=== PATIENT | male | born 1970 | race Caucasian/White ===

== ENCOUNTER → 2020-03-11 11:56 | Outpatient (BNVA) | payer OTHER, SELFPAY | PROVIDERS: PCP Family Medicine; Visit Provider Surgery | DX: Z20.822 Contact with and (suspected) exposure to COVID-19 (principal) | CPT/HCPCS: 87635 ==

== ENCOUNTER 2020-03-17 06:07 | Day surgery (SDC) | payer OTHER, SELFPAY ==
[2020-03-14 13:12] VITALS: BMI 25.7
[2020-03-17 06:22] VITALS: BP 116/71; PULSE 77; RESP 18; TEMP 36.3; O2SAT 98
--- NOTE | 2020-03-17 06:36 | W.PM.OPSUD ---
Surgery/Procedure H&P Update DATE OF PROCEDURE: March 17, 2020 DATE H&P PERFORMED: 03/01/20 H&P UPDATE INFORMATION: No changes to prior documentation PLANNED PROCEDURE: Operation Date: 03/17/20 07:00 Proposed Procedures p Colonoscopy 11026 Z12.11(Not Applicable) - Bhupinder Prado MD
[2020-03-17] MEDS: sodium chloride 0.9% 1,000 ML 30 ML IV (06:40)
--- NOTE | 2020-03-17 06:40 | ANES.PREANE2 ---
Pre-Anesthetic Assessment Pre-Anesthetic Assessment: Height/Weight: Height 1.83 m Weight 86.183 kg Temp Pulse Resp BP Pulse Ox 97.3 F L 77 18 116/71 98 03/17/20 06:22 03/17/20 06:22 03/17/20 06:22 03/17/20 06:22 03/17/20 06:22 Preop Diagnosis: screening Proposed Procedure: Operation Date: 03/17/20 07:00 Proposed Procedures p Colonoscopy 69042 Z12.11(Not Applicable) - Bhupinder Prado MD Familial anesthetic complications: None Was Beta Amira taken within 24 hours: N/A Last intake: Intake Last Liquid Date 03/16/20 Last Liquid Time 22:00 Last Solid Date 03/16/20 Last Solid Time 08:00 Social: Social History: No alcohol and No tobacco Exam: Pre-Anes Outpt Exam: alert, oriented x 3, clear to auscultation bilaterally and regular rate & rhythm Airway: Cervical ROM: WNL MP: 4 Dentition: Full Anesthetic Plan: ASA status: 1 Anesthesia: MAC Risk of > 500 ml blood loss (7ml/kg in children): No Meds/Allergies Current Medications: Current Medications Generic Name Dose Route Start Last Admin Trade Name Freq PRN Reason Stop Dose Admin Sodium Chloride 1,000 mls @ 30 ml s/hr 03/17/20 06:15 03/17/20 06:40 Sodium Chloride 0.9% IV 03/18/20 06:14 30 mls/hr .Q24H SEAN Administration Data Anesthesia Cardiac Studies: No Data to Display
[2020-03-17 07:27] VITALS: BP 133/65; PULSE 79; RESP 16; TEMP 36.2; O2SAT 99
[2020-03-17 07:38] VITALS: BP 118/78; PULSE 87; RESP 18; O2SAT 97
--- NOTE | 2020-03-17 07:39 | ANE.PACU2 ---
Inpatient post-anesthesia follow up: Airway intact: Yes Vital signs: Temperature 97.1 F Pulse Rate 87 Respiratory Rate 18 Blood Pressure 118/78 Pulse Oximetry 97 Oxygen Delivery Me thod Room Air Oxygen Flow Rate 2 Fraction of Inspir ed Oxygen Hydration adequate: Yes Nausea and vomiting: No Mental status: Baseline
== END 2020-03-17 08:22 | disposition home or self-care (01) ==
PROVIDERS: PCP Family Medicine; Visit Provider Surgery
PROC: 0DJD8ZZ Inspection of Lower Intestinal Tract, Via Natural or Artificial Opening Endoscopic (ICD-10-PCS; CPT 45378; principal; 2020-03-17 07:00)
DX: Z12.11 Encounter for screening for malignant neoplasm of colon (principal); K64.8 Other hemorrhoids
CPT/HCPCS: 12345; 45378; J2704; J7030

== ENCOUNTER 2020-10-10 20:00 | Outpatient (CLI) | payer OTHER, SELFPAY | END 2020-10-10 20:01 | disposition home or self-care (01) | LOC: SLEEP 10-11 10:03 | PROVIDERS: PCP Nurse Practitioner Family; Visit Provider Nurse Practitioner Family | DX: G47.10 Hypersomnia, unspecified (principal); R06.83 Snoring; R53.83 Other fatigue | CPT/HCPCS: 95810 ==

== ENCOUNTER 2021-06-05 02:59 | Emergency (ER) | payer OTHER, SELFPAY ==
[2021-06-05 03:08] VITALS: BP 148/84; PULSE 97; RESP 20; TEMP 36.8; O2SAT 96
--- NOTE | 2021-06-05 03:09 | ECG_ITS ---
[facility] Test Date: 2021-06-05 Pat Name: Nicholas Hill Department: Room: Gender: Male Thread Laster: : 1970 Requested By: Bryan Villalobos Order Number: [id number] Saige MD: Mariano Triana M.D. Measurements Intervals [place] Rate: 97 P: 54 TN: 166 QRS: 7 QRSD: 90 T: 64 QT: 337 QTc: 429 Interpretive Statements SINUS RHYTHM NONSPECIFIC T-WAVE ABNORMALITY No previous ECG available for comparison Electronically Signed On 06-05-2021 22:07:43 CDT by Mariano Triana M.D. [email or web address] in the [email or web address]/[id number]
--- NOTE | 2021-06-05 03:09 | XRR_ITS ---
PROCEDURE INFORMATION: Exam: XR Chest Exam date and time: 06/05/2021 3:11 AM Age: 50 years old Clinical indication: Pain; Dyspnea; Patient HX: Chest pressure and left arm numbness and tingling; Additional info: Cp TECHNIQUE: Imaging protocol: XR of the chest. Views: 1 view. COMPARISON: No relevant prior studies available. FINDINGS: Lungs: Unremarkable. No consolidation. Pleural spaces: Unremarkable. No pleural effusion. No pneumothorax. Heart/Mediastinum: Unremarkable. No cardiomegaly. Bones/joints: Unremarkable. XR/XR chest 1V portable [id number] IMPRESSION: No acute findings.
[2021-06-05 03:10] VITALS: BMI 32.3
[2021-06-05 03:17] VITALS: BP 131/83; PULSE 97; RESP 18; O2SAT 95
[2021-06-05 03:20] LABS: Basophils % 0.4 %; Eosinophils # 0.1 10^3/uL (0.0-0.8); Eosinophils % 0.7 %; Hematocrit 48.3 % (42.0-52.0); Hemoglobin 16.6 g/dL (11.7-16.6); Lymphocytes # 0.4 10^3/uL (0.8-4.8); Lymphocytes % 3.7 %; Mean Corpuscular HGB Conc 34.4 g/dL (30.0-36.0); Mean Corpuscular Hemoglobin 31.1 pg (28.0-34.0); Mean Corpuscular Volume 90.6 fl (80-94); Mean Platelet Volume 9.6 fL (7.4-10.4); Monocytes # 0.4 10^3/uL (0.2-0.9); Neutrophils # 8.62 10^3/uL (1.8-7.7); Nucleated Red Blood Cells % 0 %; Platelet Count 213 10^3/cmm (130-400); Red Blood Count 5.33 10^6/uL (4.1-5.3); Red Cell Distribution Width 12.4 % (12.1-15.1); White Blood Count 9.5 10^3/uL (4.0-10.0)
[2021-06-05 03:33] LABS: Troponin(5th) Baseline 6 ng/L (0-15)
[2021-06-05 03:40] LABS: Alanine Aminotransferase 32 U/L (0-41); Albumin Level 4.6 g/dL (3.5-5.2); Alkaline Phosphatase 125 IU/L (40-130); Anion Gap 15.8 (5-19); Aspartate Amino Transferase 28 U/L (0-40); Blood Urea Nitrogen 18 mg/dL (6-20); Calcium 8.4 mg/dL (8.5-10.5); Carbon Dioxide 25 mmol/L (22-29); Chloride 101 mmol/L (98-107); Globulin 2.7 g/dL (1.3-4.6); Glomerular Filtration Rate 101.5 mL/min (90-130); Glucose 117 mg/dL (65-115); NT Pro B Type Natriuretic Pept 22 pg/mL (0-125); Osmolality Calculated 289 mOsm/kg (285-295); Potassium 3.8 mmol/L (3.5-5.1); Sodium 138 mmol/L (136-145); Total Bilirubin 0.7 mg/dL (0.15-1.2); Total Protein 7.3 g/dL (6.6-8.7)
[2021-06-05 03:57] LABS: INR 1.03 (0.8-1.2); Partial Thromboplastin Time 27.6 SECONDS (23.9-36.7)
--- NOTE | 2021-06-05 04:56 | ED_ITS ---
HPI - Chest Pain General: Chief Complaint: Chest Pain Stated Complaint: chest Pain Time Seen by Provider: 06/05/21 03:09 Source: patient and family History of Present Illness: Healthy 50-year-old male who presents after awakening this morning with chest discomfort. He notes pain was in the lower part of his chest, radiated into his left arm. He became nauseated and vomited once. He was mildly short of breath. He notes that he felt improved after vomi ting. He is pain-free now. He had taken some Tums prior to vomiting. He denies long car trips or immobilization, fever, cough, or other symptoms. He has had heartburn before, but notes that it has never awoken him from sleep, and that this is a different type of pain. MD complaint: chest pain Pertinent past history: other Onset (ago): hour(s) Timing of current episode: constant and now resolved Prior episodes: No Onset: awoke with symptoms Pain location: substernal and epigastric Pain radiation: left arm Severity: moderate Quality: aching Relieving factors: other (Vomiting) Exacerbating factors: nothing Associated symptoms: Reports dyspnea, nausea and vomiting; Deny abdominal pain, diaphoresis, fever(s), leg edema or syncope Treatment prior to arrival: other Review of Systems Const: Denies: fever(s) or diaphoresis Card: Denies: chest pain or syncope Resp: Reports: dyspnea GI: Reports: nausea and vomiting; Denies: abdominal pain Physical Exam Const: GENERAL APPEARANCE: cooperative; not frail appearing HENMT: COMMON NORMALS: normocephalic and Normal external nose present HEAD & SCALP: normocephalic NOSE: Normal external nose present Eye: COMMON NORMALS: Equal, round and reactive pupils present and EOMs intact bilaterally PUPIL: Yes Equal, round and reactive pupils present Chest: COMMONS NORMALS: normal inspection of the chest CHEST: No tenderness Resp: COMMON NORMALS: normal respiratory effort, No use of accessory muscles and clear to auscultation bilaterally AUSCULTATION: clear to auscultation bilaterally Cardio: COMMON NORMALS: regular rate and regular rhythm RATE: regular rate RHYTHM: regular rhythm GI: COMMON NORMALS: Normal to inspection, nondistended, normoactive bowel sounds present, Soft to palpation and non-tender PALPATION: Yes Soft to palpation Neuro: COLIN COMA SCALE: document GCS findings [place] coma scale eye opening: Spontaneous Colin coma scale verbal response: Orientated [place] coma scale motor response: Obey commands [place] coma scale total score: 15 Psych: COMMON NORMALS: cooperative Course Vital Signs: Vital signs: Vital Signs Temperature 98.2 F 06/05/21 03:08 Pulse Rate 97 06/05/21 03:17 Respiratory Rate 18 06/05/21 03:17 Blood Pressure 131/83 06/05/21 03:17 Pulse Oximetry 95 06/05/21 03:17 MDM - Chest Pain Medical Decision Making 50-year-old gentleman with resolved chest pain. CBC is normal. BMP is normal. Liver enzymes are normal. Chest x-ray is normal as well. EKG shows a normal sinus rhythm with a rate of 90, normal axis, no acute ST changes. Intervals are normal. Troponin is 6. Second troponin is pending. If delta is normal, will allow discharge with outpatient stress test follow-up. Lab Data : 06/05/21 03:05 06/05/21 03:05 Radiology Impressions Chest X-Ray 06/05/21 03:09 IMPRESSION: No acute findings. Laboratory Results WBC 9.5 10^3/uL (4.0-10.0) 06/05/21 03:05 RBC 5.33 10^6/uL (4.1-5.3) H 06/05/21 03:05 Hgb 16.6 g/dL (11.7-16.6) 06/05/21 03:05 Hct 48.3 % (42.0-52.0) 06/05/21 03:05 MCV 90.6 fl (80-94) 06/05/21 03:05 MCH 31.1 pg (28.0-34.0) 06/05/21 03:05 MCHC 34.4 g/dL (30.0-36.0) 06/05/21 03:05 RDW 12.4 % (12.1-15.1) 06/05/21 03:05 Plt Count 213 10^3/cmm (130-400) 06/05/21 03:05 MPV 9.6 fL (7.4-10.4) 06/05/21 03:05 Neut % (Auto) 91.0 % 06/05/21 03:05 Lymph % (Auto) 3.7 % 06/05/21 03:05 [place] % (Auto) 4.0 % 06/05/21 03:05 Eos % (Auto) 0.7 % 06/05/21 03:05 Baso % (Auto) 0.4 % 06/05/21 03:05 Neut # (Auto) 8.62 10^3/uL (1.8-7.7) H 06/05/21 03:05 Lymph # (Auto) 0.4 10^3/uL (0.8-4.8) L 06/05/21 03:05 [place] # (Auto) 0.4 10^3/uL (0.2-0.9) 06/05/21 03:05 Eos # (Auto) 0.1 10^3/uL (0.0-0.8) 06/05/21 03:05 Baso # (Auto) 0.0 10^3/uL (0.0-0.1) 06/05/21 03:05 Nucleated RBC % (auto) 0 % 06/05/21 03:05 Nucleated RBCs # 0.0 /100WBC 06/05/21 03:05 PT 13.80 SECONDS (12.1-14.9) 06/05/21 03:40 INR 1.03 (0.8-1.2) 06/05/21 03:40 APTT 27.6 SECONDS (23.9-36.7) 06/05/21 03:40 Sodium 138 mmol/L (136-145) 06/05/21 03:05 Potassium 3.8 mmol/L (3.5-5.1) 06/05/21 03:05 Chloride 101 mmol/L (98-107) 06/05/21 03:05 Carbon Dioxide 25 mmol/L (22-29) 06/05/21 03:05 Anion Gap 15.8 (5-19) 06/05/21 03:05 BUN 18 mg/dL (6-20) 06/05/21 03:05 Creatinine 0.8 mg/dL (0.7-1.2) 06/05/21 03:05 GFR Calculation 101.5 mL/min (90-130) 06/05/21 03:05 Glucose 117 mg/dL (65-115) H 06/05/21 03:05 Calculated Osmolality 289 mOsm/kg (285-295) 06/05/21 03:05 Calcium 8.4 mg/dL (8.5-10.5) L 06/05/21 03:05 Total Bilirubin 0.7 mg/dL (0.15-1.2) 06/05/21 03:05 AST 28 U/L (0-40) 06/05/21 03:05 ALT 32 U/L (0-41) 06/05/21 03:05 Alkaline Phosphatase 125 IU/L (40-130) 06/05/21 03:05 Troponin T Baseline 6 ng/L (0-15) 06/05/21 03:05 Troponin T 120 Minute 6.00 ng/L (0-15) 06/05/21 04:31 NT-Pro-B Natriuret Pep 22 pg/mL (0-125) 06/05/21 03:05 Total Protein 7.3 g/dL (6.6-8.7) 06/05/21 03:05 Albumin 4.6 g/dL (3.5-5.2) 06/05/21 03:05 Globulin 2.7 g/dL (1.3-4.6) 06/05/21 03:05 Discharge Plan Discharge Patient Disposition: Home Clinical Impression: Chest pain Condition: Stable Prescriptions: No Action multivitamin Tablet 1 tab PO DAILY 0RF Discharge Orders: Discharge ED (Routine); Ordered 06/05/21 Ordered By: Bryan Cabello Referrals: Dimple Shankar FNP [Primary Care Provider] - 1-3 days Discharge Diet: Advance as tolerated Discharge Activity: Increase activity as tolerated Patient Instructions: Chest Pain (ED) Activity Restrictions/Additional Instructions: Case management will set you up for an outpatient stress test. You should get a call in the next couple of days regarding scheduling. If you do not, Edvin [phone] during normal business hours and ask for the bilingual patient support caseworker. Return to the ER for return of chest pain, shortness of breath, fever, cough, any other concerning symptoms. Coding Level of Care Code ED Culinary Worker for Abelardo Fwpreethi Exam Comprehensive
--- NOTE | 2021-06-05 05:09 | ECG_ITS ---
[facility] Test Date: 2021-06-05 Pat Name: Nicholas Hill Department: Room: Gender: Male Instructional Aide: : 1970 Requested By: Bryan Villalobos Order Number: [id number] Saige MD: Mariano Triana M.D. Measurements Intervals [place] Rate: 94 P: 61 MS: 169 QRS: 18 QRSD: 92 T: 70 QT: 333 QTc: 418 Interpretive Statements SINUS RHYTHM Compared to ECG 06/05/2021 03:07:51 T-wave abnormality no longer present Electronically Signed On 06-05-2021 22:14:29 CDT by Mariano Triana M.D. [email or web address] [email or web address] Phone/store/OM/[id number]
[2021-06-05 05:26] VITALS: BP 133/81; O2SAT 97
--- NOTE | 2021-06-05 14:57 | DCPLANNER ---
Addendum entered by Alma Delia Grace 07/07/21 19:15: Patients had an outpatient stress test scheduled for 07.04.21 - patient did attend appointment. Addendum entered by Alma Delia Grace 06/15/21 22:12: Patient has a stress test scheduled for Sunday, July 04, 2021 at 1:00. Centralized scheduling will call patient with appointment information. Original Note: manager of security had message to schedule an outpatient stress test for patient. manager of security spoke with patients , she stated that patient wanted to have the stress test, and that he sees Dimple Shaknar for his primary care physician. manager of security faxed signed order for stress test to centralized scheduling, who will call patient with appointment information.
== END 2021-06-05 05:30 | disposition home or self-care (01) ==
PROVIDERS: Emergency Provider Emergency Medicine; PCP Nurse Practitioner Family
DX: R07.9 Chest pain, unspecified (principal)
CPT/HCPCS: 71045; 80053; 83880; 84484; 85025; 85610; 85730; 93005; 99283

== ENCOUNTER 2021-06-05 17:08 | Emergency (ER) | payer OTHER, SELFPAY ==
[2021-06-05 17:43] VITALS: BP 122/73; PULSE 82; RESP 16; TEMP 36.7; O2SAT 95; BMI 28.5
--- NOTE | 2021-06-05 18:53 | ECG_ITS ---
[facility] Test Date: 2021-06-05 Pat Name: Nicholas Hill Department: Room: Gender: Male Director Content Marketing: : 1970 Requested By: Raciel Bunn Order Number: [id number] Saige MD: Mariano Triana M.D. Measurements Intervals [place] Rate: 82 P: 67 [place]: 182 QRS: 24 QRSD: 100 T: 71 QT: 361 QTc: 422 Interpretive Statements SINUS RHYTHM INCOMPLETE RIGHT BUNDLE BRANCH BLOCK [90+ ms QRS DURATION, TERMINAL R IN V1/V2, 40+ ms S IN I/aVL/V4/V5/V6] NONSPECIFIC T-WAVE ABNORMALITY Compared to ECG 06/05/2021 04:40:11 Incomplete right bundle-branch block now present T-wave abnormality now present Electronically Signed On 06-05-2021 21:49:27 CDT by Mariano Triana M.D. [email or web address] Therapeuticsreg[facility] hospital [facility].[employer]/store/OM/[id number]
--- NOTE | 2021-06-05 19:22 | W.ED.GENADLT ---
HPI - General Adult General: Chief complaint: General Medical Stated complaint: sent to ER per Dr. Cabello Time Seen by Provider: 06/05/21 18:55 Source: patient Mode of arrival: ambulatory Limitations: no limitations History of Present Illness: 50-year-old male who was seen here last night for some chest pain lab work was normal he states that throughout the day he has had some pain in his back he has been feeling fatigued and having muscle aches. He denies any worsening improving factors states he just had felt worse today. Concern of possible blood clot he denies any chest pain currently is more back pain today. [facility], [facility] PFSH: Medical History (Updated 06/05/21 @ 22:44 by Raciel Bunn MD) No pertinent past medical history Social History (Updated 06/05/21 @ 19:23 by Raciel Bunn MD) Substance/Drug Use: never Physical Exam Const: COMMON NORMALS: no acute distress, patient oriented x3 and healthy appearing HENMT: COMMON NORMALS: normocephalic and atraumatic HEAD & SCALP: normocephalic and atraumatic Eye: COMMON NORMALS: Equal, round and reactive pupils present and EOMs intact bilaterally PUPIL: Yes Equal, round and reactive pupils present Neck/C-Spine: COMMON NORMALS: full ROM and supple Chest: COMMONS NORMALS: normal inspection of the chest and normal palpation of entire chest wall Resp: COMMON NORMALS: normal respiratory effort, No retractions, No use of accessory muscles and clear to auscultation bilaterally AUSCULTATION: clear to auscultation bilaterally Cardio: COMMON NORMALS: regular rate, regular rhythm and No murmurs present (Cardio) RATE: regular rate RHYTHM: regular rhythm GI: COMMON NORMALS: Normal to inspection, nondistended, normoactive bowel sounds present, Soft to palpation, non-tender and no masses PALPATION: Yes Soft to palpation Extremity: COMMON NORMALS: normal to inspection and full ROM Neuro: COMMON NORMALS: patient oriented x3, moves all extremities and no focal motor deficits Psych: COMMON NORMALS: mental status grossly normal, Normal thought process present and cooperative THOUGHT PROCESS: Normal thought process present Skin: COMMON NORMALS: no rashes or lesions noted and no wounds GENERAL SKIN EXAM: no rashes or lesions noted Course Vital Signs: Vital signs: Vital Signs Temperature 98.0 F 06/05/21 17:43 Pulse Rate 86 04/25/22 22:38 Respiratory Rate 18 06/05/21 22:38 Blood Pressure 124/87 06/05/21 22:38 Pulse Oximetry 99 06/05/21 22:38 MDM - General Adult Medical Decision Making Patient presents here with malaise fatigue some back pain chest pain likely has a viral illness patient's blood work including CT angio is all normal he is stable for discharge to follow-up PCP and return if worsening. Lab Data : 06/05/21 19:51 06/05/21 19:51 Radiology Impressions Chest CTA 06/05/21 20:31 IMPRESSION: Negative for pulmonary embolus or airspace infiltrate. Laboratory Results WBC 5.4 10^3/uL (4.0-10.0) 06/05/21 19:51 RBC 4.96 10^6/uL (4.1-5.3) 06/05/21 19:51 Hgb 15.4 g/dL (11.7-16.6) 06/05/21 19:51 Hct 45.7 % (42.0-52.0) 06/05/21 19:51 MCV 92.1 fl (80-94) 06/05/21 19:51 MCH 31.0 pg (28.0-34.0) 06/05/21 19:51 MCHC 33.7 g/dL (30.0-36.0) 06/05/21 19:51 RDW 12.7 % (12.1-15.1) 06/05/21 19:51 Plt Count 177 10^3/cmm (130-400) 06/05/21 19:51 MPV 9.6 fL (7.4-10.4) 06/05/21 19:51 Neut % (Auto) 81.6 % 06/05/21 19:51 Lymph % (Auto) 10.1 % 06/05/21 19:51 [place] % (Auto) 6.9 % 06/05/21 19:51 Eos % (Auto) 0.4 % 06/05/21 19:51 Baso % (Auto) 0.4 % 06/05/21 19:51 Neut # (Auto) 4.39 10^3/uL (1.8-7.7) 06/05/21 19:51 Lymph # (Auto) 0.5 10^3/uL (0.8-4.8) L 06/05/21 19:51 [place] # (Auto) 0.4 10^3/uL (0.2-0.9) 06/05/21 19:51 Eos # (Auto) 0.0 10^3/uL (0.0-0.8) 06/05/21 19:51 Baso # (Auto) 0.0 10^3/uL (0.0-0.1) 06/05/21 19:51 Nucleated RBC % (auto) 0 % 06/05/21 19:51 Nucleated RBCs # 0.0 /100WBC 06/05/21 19:51 PT 14.90 SECONDS (12.1-14.9) 06/05/21 19:51 INR 1.13 (0.8-1.2) 06/05/21 19:51 D-Dimer 0.94 ug/mIFEU (0-0.59) H 06/05/21 19:51 Sodium 137 mmol/L (136-145) 06/05/21 19:51 Potassium 3.4 mmol/L (3.5-5.1) L 06/05/21 19:51 Chloride 102 mmol/L (98-107) 06/05/21 19:51 Carbon Dioxide 26 mmol/L (22-29) 06/05/21 19:51 Anion Gap 12.4 (5-19) 06/05/21 19:51 BUN 15 mg/dL (6-20) 06/05/21 19:51 Creatinine 0.9 mg/dL (0.7-1.2) 06/05/21 19:51 GFR Calculation 88.6 mL/min (90-130) L 06/05/21 19:51 Glucose 96 mg/dL (65-115) 06/05/21 19:51 Calculated Osmolality 285 mOsm/kg (285-295) 06/05/21 19:51 Calcium 7.9 mg/dL (8.5-10.5) L 06/05/21 19:51 Total Bilirubin 0.8 mg/dL (0.15-1.2) 06/05/21 19:51 AST 21 U/L (0-40) 06/05/21 19:51 ALT 25 U/L (0-41) 06/05/21 19:51 Alkaline Phosphatase 99 IU/L (40-130) 06/05/21 19:51 Troponin T Baseline 7 ng/L (0-15) 06/05/21 19:51 Troponin T 120 Minute 7.28 ng/L (0-15) 06/05/21 21:41 Delta Troponin T 0.28 ABS# (0-10) 06/05/21 21:41 Total Protein 6.1 g/dL (6.6-8.7) L 06/05/21 19:51 Albumin 4.4 g/dL (3.5-5.2) 06/05/21 19:51 Globulin 1.7 g/dL (1.3-4.6) 06/05/21 19:51 Influenza Type A Ag Negative (Negative) 06/05/21 20:11 Influenza Type B Ag Negative (Negative) 06/05/21 20:11 SARS-CoV-2 Ag (Rapid) Negative (Negative) 06/05/21 20:11 EKG Data EKG 1: I personally reviewed and interpreted this EKG as follows: EKG interpretation date: 06/05/21 EKG interpretation time: 19:28 Interpretation: nsr hr [address] or t wave abnormalities qrs 100 qtc 399 Computer generated interpretation: Chest CTA 06/05/21 20:31 IMPRESSION: Negative for pulmonary embolus or airspace infiltrate. Discharge Plan Discharge Patient Disposition: Home Clinical Impression: Chest pain Prescriptions: No Action multivitamin Tablet 1 tab PO DAILY 0RF niacinamide 500 mg Tablet 500 mg PO DAILY 0RF Vitamin C 100 mg Tablet 100 mg PO DAILY 0RF Cholest Off 450 mg Tablet 450 mg PO DAILY 0RF Zyrtec 10 mg Capsule 10 mg PO DAILY 0RF Fish Oil 60-90-500 mg Capsule 1 cap PO DAILY 0RF Discharge Orders: Discharge ED (Routine); Ordered 06/05/21 Ordered By: Raciel Bunn Referrals: Raad,ZOHRA Musa [Primary Care Provider] - Discharge Diet: Advance as tolerated Discharge Activity: Resume usual activity Patient Instructions: Chest Pain (ED) Coding Level of Care Code ED Tube Drawing Supervisor for Chg Fwd Exam Comprehensive
[2021-06-05 20:00] LABS: Basophils % 0.4 %; Eosinophils % 0.4 %; Hematocrit 45.7 % (42.0-52.0); Hemoglobin 15.4 g/dL (11.7-16.6); Lymphocytes # 0.5 10^3/uL (0.8-4.8); Lymphocytes % 10.1 %; Mean Corpuscular HGB Conc 33.7 g/dL (30.0-36.0); Mean Corpuscular Volume 92.1 fl (80-94); Mean Platelet Volume 9.6 fL (7.4-10.4); Monocytes # 0.4 10^3/uL (0.2-0.9); Monocytes % 6.9 %; Neutrophils # 4.39 10^3/uL (1.8-7.7); Neutrophils % 81.6 %; Nucleated Red Blood Cells % 0 %; Platelet Count 177 10^3/cmm (130-400); Red Blood Count 4.96 10^6/uL (4.1-5.3); Red Cell Distribution Width 12.7 % (12.1-15.1); White Blood Count 5.4 10^3/uL (4.0-10.0)
[2021-06-05 20:12] VITALS: BP 132/78; PULSE 79; RESP 20; O2SAT 97
[2021-06-05 20:21] LABS: INR 1.13 (0.8-1.2)
[2021-06-05 20:22] LABS: D Dimer 0.94 ug/mIFEU (0-0.59)
[2021-06-05 20:23] LABS: Alanine Aminotransferase 25 U/L (0-41); Albumin Level 4.4 g/dL (3.5-5.2); Alkaline Phosphatase 99 IU/L (40-130); Anion Gap 12.4 (5-19); Aspartate Amino Transferase 21 U/L (0-40); Blood Urea Nitrogen 15 mg/dL (6-20); Calcium 7.9 mg/dL (8.5-10.5); Carbon Dioxide 26 mmol/L (22-29); Chloride 102 mmol/L (98-107); Globulin 1.7 g/dL (1.3-4.6); Glomerular Filtration Rate 88.6 mL/min (90-130); Glucose 96 mg/dL (65-115); Osmolality Calculated 285 mOsm/kg (285-295); Potassium 3.4 mmol/L (3.5-5.1); Sodium 137 mmol/L (136-145); Total Bilirubin 0.8 mg/dL (0.15-1.2); Total Protein 6.1 g/dL (6.6-8.7)
[2021-06-05 20:24] LABS: Troponin(5th) Baseline 7 ng/L (0-15)
[2021-06-05] MEDS: sodium chloride 0.9% 1,000 ML 999 ML IV (20:30)
--- NOTE | 2021-06-05 20:31 | CTR_ITS ---
PROCEDURE INFORMATION: Exam: CTA Chest With Contrast Exam date and time: 06/05/2021 9:07 PM Age: 50 years old Clinical indication: Shortness of breath; Additional info: SOB TECHNIQUE: Imaging protocol: Computed tomographic angiography of the chest with contrast. 3D rendering (Not supervised by radiologist): MIP and/or 3D reconstructed images were created by the technologist. Radiation optimization: All CT scans at this facility use at least one of these dose optimization techniques: automated exposure control; mA and/or kV adjustment per patient size (includes targeted exams where dose is matched to clinical indication); or iterative reconstruction. Contrast material: OMNI 350; Contrast volume: 97 ml; Contrast route: INTRAVENOUS (IV); COMPARISON: CR XR chest 1V portable [id number] 06/05/2021 3:11 AM RADIATION DOSE METRICS: Total DLP (mGy-cm): 572.68 FINDINGS: Pulmonary arteries: Normal. No pulmonary emboli. Aorta: Unremarkable. No aortic aneurysm. No aortic dissection. Lungs: Bibasilar atelectasis versus minimal infiltrate. Pleural spaces: Unremarkable. No pneumothorax. No pleural effusion. Heart: Unremarkable. No cardiomegaly. No pericardial effusion. Lymph nodes: Unremarkable. No enlarged lymph nodes. Bones/joints: Unremarkable. No acute fracture. Soft tissues: Unremarkable. CT/CT angio chest PE protcl [id number] IMPRESSION: Negative for pulmonary embolus or airspace infiltrate.
[2021-06-05 20:39] LABS: SARS Covid-2 Antigen Negative (Negative)
[2021-06-05 20:40] LABS: Influenza A by IFA Negative (Negative); Influenza B by IFA Negative (Negative)
[2021-06-05] MEDS: iohexol 350 mg/mL 100 mL Btl IV (21:10)
[2021-06-05 21:51] VITALS: BP 142/83; PULSE 87; RESP 15; O2SAT 99
[2021-06-05 22:10] LABS: Troponin 5 2HR 7.28 ng/L (0-15)
[2021-06-05 22:32] LABS: Troponin 5 2HR Delta 0.28 ABS# (0-10)
[2021-06-05] MEDS: ketorolac 30 mg/mL INJ 15 MG IVP (22:34)
[2021-06-05 22:38] VITALS: BP 124/87; PULSE 86; RESP 18; O2SAT 99
[2021-06-05 23:04] VITALS: BP 124/87; PULSE 85; RESP 16; O2SAT 96
== END 2021-06-05 23:00 | disposition home or self-care (01) ==
PROVIDERS: Emergency Medicine; Emergency Provider Emergency Medicine; PCP Nurse Practitioner Family
DX: R07.9 Chest pain, unspecified (principal)
CPT/HCPCS: 36415; 71275; 80053; 84484; 85025; 85378; 85610; 87426; 87804; 93005; 96361; 96374; 99284; J1885; J7030; Q9967

== ENCOUNTER 2021-07-03 10:02 | Outpatient (CLI) | payer OTHER, SELFPAY ==
[2021-07-03 10:23] VITALS: BMI 28.5
--- NOTE | 2021-07-03 10:36 | ECG_ITS ---
[facility] Test Date: 2021-07-03 Pat Name: Nicholas Hill Department: Room: Gender: Male Case Briefer: Any TysonSol : 1970 Requested By: Bryan Villalobos Order Number: [id number] Saige MD: Mariano Triana M.D. Interpretive Statements NAME OF STUDY: LEXISCAN SESTAMIBI STRESS TEST INDICATION: [Chest Pain, ] Procedure: At the baseline, the blood pressure was 134/85 mmHg with a heart rate of 65 bpm. The electrocardiogram showed normal sinus rhythm, normal axis with normal ST and T's. The Lexiscan was infused over a period of 20 seconds. A total of 0.4 mg of Lexiscan was infused. The stress phase was continued for a total of 5 minutes. Heart rate was at the end of stress phase was 77 bpm and a blood pressure of 134/81 mmHg. The EKG at the peak infusion revealed normal sinus rhythm with no significant ST-T wave changes. Sestamibi was injected 20 seconds after the Lexiscan infusion. Blood pressure at the end of recovery phase was 136/82 mmHg with a heart rate of 74 bpm. Conclusion: 1. Normal EKG response to Lexiscan infusion 2. No Lexiscan induced chest pain or cardiac arrhythmia. 3. Normal blood pressure and heart rate response. 4. Sestamibi/sestamibi perfusion scan pending; see separate report. Electronically Signed On 07-27-2021 11:46:53 CDT by Mariano Triana M.D. [id number]
--- NOTE | 2021-07-03 10:37 | NMCV_ITS ---
NM pierre perf SPECT r/s* [id number] Nicholas Hill Age: 50 Gender: M : 1970 Exam Date: 07/03/2021 11:11 Ordering Phys: Bryan Cabello DO Technologist: NESSA Cho Exam Location: [facility] Indications: CHEST PAIN STRESS TEST Please see separate stress test report in [facility] for full findings IMAGE PROTOCOL Rest/Stress 1 Lexiscan Day Radiopharmaceutical Dose (mCi) Administration Site Administered by Rest: Tc-99m 10.8 IV NESSA Cho Sestamibi Stress:Tc-99m 32.7 IV NESSA Bourne Sestamibi Rest: 03-Jul-2021 60 Discovery 630 Stress: 03-Jul-2021 30 Discovery 630 0.4mg Lexiscan. Images obtained in supine and prone position. SPECT RESULTS Technical Quality: Excellent Raw Data Analysis: Normal Image Corrections: No attenuation or motion correction applied Summed Stress Score: 0 Summed Rest Score: 1 Summed Difference Score: 0 PERFUSION FINDINGS SPECT images demonstrate homogeneous tracer distribution throughout the myocardium. FUNCTIONAL RESULTS (calculated via Gated SPECT) Stress Image LV EF (%): 71 Stress EDV (mL):86 TID: 1.09 Stress ESV (mL):25 FUNCTIONAL FINDINGS: There is normal left ventricular systolic function. IMPRESSIONS 1. Normal myocardial perfusion imaging with no evidence of ischemia 2. LV systolic function is normal Mariano Triana MD (Electronically Signed) Final Date: 03 Jul 2021 15:12 S
[2021-07-03] MEDS: regadenoson 0.4 Mg/5 ml Syringe IVP (11:53)
[2021-07-03 12:15] VITALS: BP 136/82; PULSE 74
== END 2021-07-03 10:03 | disposition home or self-care (01) ==
PROVIDERS: PCP Nurse Practitioner Family; Visit Provider Emergency Medicine
DX: R07.9 Chest pain, unspecified (principal)
CPT/HCPCS: 78452; 93017; A9500; J2785